=== PATIENT | male | born 1995 | race Caucasian/White ===

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

== ENCOUNTER 2018-01-21 23:56 | Emergency (ER) | payer OTHER ==
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
[2018-01-22] MEDS ORDERED: ONDANSETRON 4 MG ODT TABLET SL ONE (00:23)
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
== END 2018-01-22 01:47 | disposition home or self-care (01) ==
LOC: ER 23:56
DX: S06.0X0A Concussion without loss of consciousness, initial encounter (principal); S16.1XXA Strain of muscle, fascia and tendon at neck level, initial encounter; R11.0 Nausea; H53.149 Visual discomfort, unspecified; V43.52XA Car driver injured in collision with other type car in traffic accident, initial encounter; Y92.410 Unspecified street and highway as the place of occurrence of the external cause
CPT/HCPCS: 70450; 72125; 99283; 99284